=== PATIENT | male | born 1955 | race Caucasian/White ===

== ENCOUNTER 2016-11-08 09:43 | Emergency (ER) | payer MEDICARE, OTHER ==
[~2016-11-08] VITALS: Ht 177.8 cm; Wt 79.8 kg
[2016-11-08 10:15] VITALS: BP 137/89
[2016-11-08] MEDS ORDERED: FLONASE ALLERG9.9 ML NS (10:17)
[2016-11-08] MEDS ORDERED: REGLAN10 MG ORAL (10:17)
[2016-11-08] MEDS ORDERED: VENTOLIN HFA18 GM INH (10:17)
[2016-11-08 10:25] VITALS: BP 137/89
--- NOTE | 2016-11-08 12:24 | Emergency Room Report ---
History of Present Illness General Chief Complaint: Flu Like Symptoms Source: Patient Present Illness HPI [id number] from drug rehab program with sinus pressure/rhinorrhea, "migraine", sore throat and cough Denies smoking, asthma history Took motrin Cant have any narcotics/sudafed d/t program he is in Allergies: Coded Allergies: SULFA (SULFONAMIDE ANTIBIOTICS) (Verified Allergy, Unknown, 11/08/16) Patient History Past Medical History: none Past Surgical History: none Pertinent Family History: none Social History: Denies: smoking, alcohol use, drug use Immunizations: UTD Reviewed Nursing Documentation: PMH: Agreed, PSxH: Agreed Nursing Documentation-PMH Past Medical History: No Stated History Review of Systems All Other Systems: negative except mentioned in HPI Physical Exam Vital Signs Date Time Temp Pulse Resp B/P (MAP) Pulse Ox O2 Delivery O2 Flow Rate FiO2 11/08/16 09:56 98.4 87 20 133/90 98 Room Air Sp02 EP Interpretation: reviewed, normal General Appearance: normal inspection, well appearing, no apparent distress, alert, GCS 15, non-toxic Head: normocephalic, atraumatic Eyes: bilateral eye PERRL, bilateral eye EOMI ENT: normal ENT inspection, hearing grossly normal, normal pharynx, no angioedema, normal voice, TMs + canals normal, uvula midline, moist mucus membranes Neck: normal inspection, full range of motion, supple, no bony tend Respiratory: normal inspection, lungs clear, normal breath sounds, no respiratory distress, no retraction, no accessory muscle use, no wheezing, speaking full sentences Cardiovascular #1: regular rate, rhythm, no edema Gastrointestinal: normal inspection, normal bowel sounds, non tender, soft, no guarding, no hernia Genitourinary: no CVA tenderness Musculoskeletal: normal inspection, back normal, normal range of motion, Mabel' s Sign negative Neurologic: normal inspection, alert, oriented x3, responsive, physical fitness teacher III-XII nml as tested, speech normal Psychiatric: normal inspection, judgement/insight normal, mood/affect normal Skin: normal inspection, normal color, no rash Lymphatic: normal inspection Medical Decision Making Diagnostic Impression: Primary Impression: URI (upper respiratory infection) Qualified Codes: J06.9 - Acute upper respiratory infection, unspecified ER Course VSS. Afebrile No sign of bacterial infection Likely viral URI/bronchitis Rx supportive tx PMD followup DC home Last Vital Signs Date Time Temp Pulse Resp B/P (MAP) Pulse Ox O2 Delivery O2 Flow Rate FiO2 11/08/16 10:25 98.5 74 19 137/89 99 Room Air Status: improved Disposition: HOME, SELF-CARE Condition: Improved Scripts Metoclopramide Hcl* (REGLAN*) 10 Mg Tablet 10 MG ORAL BID for For Headache for 7 Days, #14 TAB Prov: UNRULY ALEXANDER M.D. 11/08/16 Fluticasone Propionate (Flonase Allergy Relief) 9.9 Ml [place].susp 9.9 ML NS BID, #1 UNIT Prov: UNRULY ALEXANDER M.D. 11/08/16 Albuterol Sulfate (VENTOLIN HFA) 18 Gm Hfa.aer.ad 1 PUFF INH EVERY 6 HOURS for For Cough, #18 GM 0 Refills Prov: UNRULY ALEXANDER M.D. 11/08/16 Referrals: [facility],REFERRING (PCP) Additional Instructions: - Take motrin with reglan up to 2x a day for headache - Use flonase twice daily for sinus congestion - use Ventolin as needed for cough UNRULY ALEXANDER M.D. Nov 08, 2016 12:24
== END 2016-11-08 10:28 | disposition home or self-care (01) ==
LOC: EMR 10:15
DX: J06.9 Acute upper respiratory infection, unspecified (principal); Z88.2 Allergy status to sulfonamides
CPT/HCPCS: 99284

== ENCOUNTER 2017-06-20 12:23 | Emergency (ER) | payer MEDICARE, OTHER ==
[~2017-06-20] VITALS: Ht 177.8 cm; Wt 83.9 kg
[~2017-06-20 12:23] MED LIST: FLONASE ALLERG9.9 ML NS; REGLAN10 MG ORAL; VENTOLIN HFA18 GM INH
[2017-06-20] MEDS ORDERED: NKM (12:36)
--- NOTE | 2017-06-20 12:43 | Emergency Room Report ---
History of Present Illness General Chief Complaint: Upper Extremity Injury Source: Patient Present Illness HPI 61-year-old male patient presents to ER complaining of right pinky finger pain 1 day. Patient reports that his playing basketball and injured his finger. Patient reports pain and swelling at site of injury. patient reports that he is right-hand dominant. Patient reports that the ball "jammed" his finger. patient reports that he has been icing his finger and taking Advil for pain. Patient reports that he does not want opiate pain medication due to his history of opioid addiction. Reports has broken finger 3 times in the past. Patient reports he has not been able to bend his DIP and PIP of his pinky finger "for years". Patient denies fever, chest pain, shortness of breath. Allergies: Coded Allergies: SULFA (SULFONAMIDE ANTIBIOTICS) (Verified Allergy, Unknown, 11/08/16) Patient History Past Medical History: see triage record Reviewed Nursing Documentation: PMH: Agreed; PSxH: Agreed Nursing Documentation-PMH Past Medical History: No Stated History Review of Systems All Other Systems: negative except mentioned in HPI Physical Exam Vital Signs Date Time Temp Pulse Resp B/P (MAP) Pulse Ox O2 Delivery O2 Flow Rate FiO2 06/20/17 12:31 97.9 66 18 127/85 98 Room Air 97.9 Sp02 EP Interpretation: reviewed, normal General Appearance: well appearing, no apparent distress, alert, GCS 15, non- toxic Head: normocephalic, atraumatic Respiratory: lungs clear, normal breath sounds, no rhonchi, no respiratory distress, no accessory muscle use, no wheezing, speaking full sentences Cardiovascular #1: regular rate, rhythm, no edema Cardiovascular #2: 2+ radial (R), 2+ radial (L) Musculoskeletal: back normal, digits/nails normal, gait/station normal, normal range of motion - MCP, non-tender, decreased range of motion - right small finger: PIP, DIP, swelling, other - cap refill <2sec, ecchymosis, numbness over palmar side of middle phalanx between PIP and DIP joint of small finger, tender Neurologic: alert, oriented x3, responsive, motor strength/tone normal, sensory intact Psychiatric: mood/affect normal Medical Decision Making PA Attestation Dr. Persaud is my supervising Physician whom patient management has been discussed with. Diagnostic Impression: Primary Impression: Fracture, finger ER Course Pt. presents to the ED c/o right pinky finger pain. Ddx considered but are not limited to fracture, sprain, strain, contusion, dislocation. Vital signs: are WNL, pt. is afebrile Ordered X-ray and pain medication. ER COURSE Provided with pain medication. An X-ray of the right hand was ordered, results fracture of the middle finger, minimal displacement, degenerative changes, per the preliminary reading. Finger at DIP joint held in flexion. Needs assessment by hand surgeon for repair , likely tendon rupture. Reports pain symptoms improved. Splint was applied to the right pinky finger, splinted in extension, and was checked afterwards by me showing good alignment and support with distal neurovascular functioning intact. Patient instructed on RICE method: rest, ice, compression, elevation. Patient instructed to NWB. Followup with primary care provider for medical clearance to return to activities. Followup with hand specialist. Discuss referral to ortho/pain management/PT as needed. DISCHARGE: -Rx provided for Ibuprofen for pain symptoms. At this time pt. is stable for d/c to home. Patient is resting comfortably, in no acute distress, nontoxic appearing, talking without difficulty. Will provide printed patient care instructions, and any necessary prescriptions. Patient instructed to follow with primary care provider in 3 - 5 days and to request further orthopedic follow-up. Care plan and follow up instructions have been discussed with the patient prior to discharge. Take medications as directed. Patient questions asked and answered. Patient reports understanding and agreement to treatment plan. ER precautions given, patient instructed to return to ER immediately for any new or worsening of symptoms. - Please note that this Emergency Department Report was dictated using [employer] receiving clerk technology software, occasionally this can lead to erroneous entry secondary to interpretation by the dictation equipment. Other X-Ray Diagnostic Results Other X-Ray Diagnostic Results : X-Ray ordered: right hand # of Views/Limited Vs Complete: 3 View Indication: Pain EP Interpretation: Yes PA Xray: Interpretation reviewed, by supervising MD, and agrees with findings. Interpretation: other - mild displcaed fracture at middle phalanx of right small finger, degnerative changes Impression: Other - fracture KADE Scribe Text Bill Leon PA-C Last Vital Signs Date Time Temp Pulse Resp B/P (MAP) Pulse Ox O2 Delivery O2 Flow Rate FiO2 06/20/17 12:31 97.9 66 18 127/85 98 Room Air 97.9 Disposition: HOME, SELF-CARE Condition: Stable Scripts Ibuprofen* (MOTRIN*) 600 Mg Tablet 600 MG ORAL Q8H PRN for For Pain, #30 TAB 0 Refills Prov: Cosmo Leon 06/20/17 Patient Instructions: Finger Fracture, [id number] Additional Instructions: Patient instructed to follow up with primary care provider and discuss further referral to hand specialist for repair. Patient instructed on RICE method: rest, ice, compression, elevation. Patient instructed to NWB. No sports until clearance by primary care provider. Take medications as directed. Patient questions asked and answered. ER precautions given, patient instructed to return to ER immediately for any new or worsening of symptoms. Cosmo Leon June 20, 2017 12:43
[2017-06-20] MEDS ORDERED: Lidocaine 1% Plain 30 ml INJ ONE (13:00)
[2017-06-20] MEDS ORDERED: IBUPROFEN600 MG ORAL (13:43)
[2017-06-20 14:02] VITALS: BP 131/80
--- NOTE | 2017-06-20 15:07 | Diagnostic Imaging Report ---
EXAM: XR Right Hand Complete, 3 or More Views CLINICAL HISTORY: PAIN TECHNIQUE: Frontal, lateral and oblique views of the right hand. COMPARISON: No relevant prior studies available. FINDINGS: Bones/joints: Minimally displaced oblique diaphyseal fracture of the fifth digit (small finger) middle phalanx, best noted on the lateral views. Degenerative joint space narrowing is noted throughout the interphalangeal joints. Mild diffuse osseous demineralization/osteopenia. No other acute fracture or dislocation is seen. Soft tissues: Unremarkable. No radiopaque foreign body. IMPRESSION: 1. Minimally displaced oblique diaphyseal fracture of the fifth digit (small finger) middle phalanx. 2. 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 3. Mild diffuse osseous demineralization/osteopenia.
== END 2017-06-20 14:02 | disposition home or self-care (01) ==
LOC: EMR 12:52
DX: S62.620A Displaced fracture of middle phalanx of right index finger, initial encounter for closed fracture (principal); W21.05XA Struck by basketball, initial encounter; Y93.67 Activity, basketball; Y92.89 Other specified places as the place of occurrence of the external cause; Z88.2 Allergy status to sulfonamides; M19.041 Primary osteoarthritis, right hand; M85.841 Other specified disorders of bone density and structure, right hand
CPT/HCPCS: 73120; 99283; J2001